=== PATIENT | female | born 1995 | race Caucasian/White ===

== ENCOUNTER 2022-12-23 13:22 | Emergency (ER) | payer OTHER, SELFPAY ==
[2022-12-23 13:50] VITALS: BP 172/104; PULSE 107; RESP 16; TEMP 37.1; O2SAT 99; BMI 53.5
--- NOTE | 2022-12-23 14:07 | DI.RAD.S_ITS ---
PROCEDURE: XR CHEST 2V INDICATIONS: chest and back pain TECHNIQUE: 2 views of the chest were acquired. COMPARISON: CR, XR CHEST 1VW, 06/15/2015, 16:39. FINDINGS: Surgical changes and devices: None. Lungs and pleura: Lungs are clear. No pleural effusions or pneumothorax. Mediastinum: Mediastinal contours are normal. Heart size is normal. Bones and chest wall: No suspicious bony abnormalities. Soft tissues appear unremarkable. IMPRESSION: Normal for age, source of current chest and back pain symptoms is not seen. Dictated by: Almas Washington M.D. on 12/23/2022 at 14:57 Approved by: Almas Washington M.D. on 12/23/2022 at 14:57
[2022-12-23 16:23] VITALS: BP 168/86; PULSE 74; RESP 17; O2SAT 100
--- NOTE | 2022-12-23 17:06 | ED_ITS ---
HPI - Back Pain/Injury <Oly Noe DO - Last Filed: 12/26/22 02:11> General Chief Complaint: Back Pain/Injury Stated Complaint: upper back pain/rib pain rt side Time Seen by Provider: 12/23/22 17:03 Source: patient History of Present Illness HPI Narrative: Patient is a healthy 27-year-old female morbidly obese presenting today with ready of symptoms. She reports back pain between her shoulder blades right shoulder pain abdominal pain little bit of nausea ongoing for the last 3 days. She reports it started were watching TV. Really reproducible with position he took Advil it did not seem help. She says it usually does. No fever. No shortness of breath. She denies taking any control and no recent travel. She reports that pain in her right upper quadrant sometimes radiates to her right shoulder. No other symptoms. Related Data Home Medications Medication Instructions Recorded Confirmed omeprazole 40 mg capsule,delayed 40 mg ##0 06/06/16 07/23/19 release lorazepam 0.5 mg tablet 0.5 mg PO Q4HP PRN ##0 09/12/16 levonorgestrel 21 mcg/24 hours (8 intrauterine 07/23/19 07/23/19 yrs) 52 mg intrauterine device (Mirena) Previous Rx's Medication Instructions Recorded hydrocodone 5 mg-acetaminophen 325 1 tab PO Q6H PRN pain #10 tabs 12/23/22 mg tablet ondansetron 8 mg disintegrating 8 mg PO Q8H #14 tabs 12/23/22 tablet Allergies Allergy/AdvReac Type Severity Reaction Status Date / Time adhesive tape [ADHESIVE TAPE] Allergy Unknown weeping Verified 12/23/22 13:50 rashes latex [LATEX] Allergy Unknown Verified 12/23/22 13:50 Review of Systems <Oly Noe DO - Last Filed: 12/26/22 02:11> Review of Systems ROS Unobtainable: All systems reviewed & are unremarkable except as noted in HPI and below Patient History <Oly Noe DO - Last Filed: 12/26/22 02:11> Medical History Abnormal Pap smear of anus (~2017) Anemia (~2014) Anxiety and depression (~2012) Frequent UTI GERD (gastroesophageal reflux disease) (~2015) Irritable bowel disease (~2015) PTSD (post-traumatic stress disorder) (~2019) Sleep apnea (~2019) Surgical History Anesthesia History of colposcopy (~2018) History of endoscopy History of gastrectomy (~2015) History of surgery Status post PICC central line placement Family History Grandfather Cancer Grandfather Diabetes mellitus Mental health problem Grandmother Diabetes mellitus Social History Smoking Status: Never smoker Smoking Status: Never smoker alcohol intake frequency: a few times a week Substance Use Type: does not use Exam <Oly Noe DO - Last Filed: 12/26/22 02:11> Initial Vital Signs Initial Vital Signs: Vital Signs Temperature 98.7 F 12/23/22 13:50 Pulse Rate 107 H 12/23/22 13:50 Respiratory Rate 16 12/23/22 13:50 Blood Pressure 172/104 H 12/23/22 13:50 Pulse Oximetry 99 12/23/22 13:50 Oxygen Delivery Method Room Air 12/23/22 13:50 GENERAL: Alert well-appearing 27-year-old female and in no acute distress. HEENT: Head atraumatic,EOMI, pupils reactive, face symmetric, moist mucous m embranes CARDIOVASCULAR: Regular rate and rhythm without murmurs, rubs or gallops. RESPIRATORY: Breath sounds equal bilaterally, no wheezes rales or rhonchi. ABDOMEN: Soft, mild right upper quadrant pain no guarding no rebound mild epigastric pain : No CVA tenderness EXTREMITIES: Normal range of motion, no clubbing or edema. Neurovascularly intact NEUROLOGICAL: Alert and oriented x4.Normal gait and speech. SKIN: Warm, dry, no laceration, no petechiae, no rashes or lesions. <Louis Vance DO - Last Filed: 12/24/22 00:50> Initial Vital Signs Initial Vital Signs: Vital Signs Temperature 98.7 F 12/23/22 13:50 Pulse Rate 107 H 12/23/22 13:50 Respiratory Rate 16 12/23/22 13:50 Blood Pressure 172/104 H 12/23/22 13:50 Pulse Oximetry 99 12/23/22 13:50 Oxygen Delivery Method Room Air 12/23/22 13:50 Course <Oly Noe DO - Last Filed: 12/26/22 02:11> Orders Ordered: Discontinued Medications Hydrocodone Bitart/Acetaminophen (Hydrocodone/Acet 5/325 Prepack) 1 bottle MISC SEEINSTR ONE Stop: 12/23/22 19:05 Last Admin: 12/23/22 20:17 Dose: 1 bottle Documented By: JEOVANNY Ketorolac Tromethamine (Ketorolac 30 Mg/Ml Vial) 15 mg IV NOW ONE Stop: 12/23/22 17:14 Last Admin: 12/23/22 17:57 Dose: 15 mg Documented By: JEOVANNY Ondansetron HCl (Ondansetron 4 Mg Odt Prepack) 1 bottle MISC SEEINSTR ONE Stop: 12/23/22 19:05 Last Admin: 12/23/22 20:17 Dose: 1 bottle Documented By: JEOVANNY Vital Signs Vital signs: Vital Signs - 8 hr 12/23/22 20:25 Pulse Rate 92 H Respiratory Rate 17 Blood Pressure 141/85 H Pulse Oximetry 99 Oxygen Delivery Method Room Air <Louis Vance DO - Last Filed: 12/24/22 00:50> Orders Ordered: Discontinued Medications Hydrocodone Bitart/Acetaminophen (Hydrocodone/Acet 5/325 Prepack) 1 bottle MISC SEEINSTR ONE Stop: 12/23/22 19:05 Last Admin: 12/23/22 20:17 Dose: 1 bottle Documented By: JEOVANNY Ketorolac Tromethamine (Ketorolac 30 Mg/Ml Vial) 15 mg IV NOW ONE Stop: 12/23/22 17:14 Last Admin: 12/23/22 17:57 Dose: 15 mg Documented By: JEOVANNY Ondansetron HCl (Ondansetron 4 Mg Odt Prepack) 1 bottle MISC SEEINSTR ONE Stop: 12/23/22 19:05 Last Admin: 12/23/22 20:17 Dose: 1 bottle Documented By: JEOVANNY Consultations Consultation #1: Discussed ultrasound findings with Dr. Monteiro. No indication for admission or surgical intervention at this time. Recommends pain control, low-fat diet and follow-up Vital Signs Vital signs: Vital Signs - 8 hr 12/23/22 20:25 Pulse Rate 92 H Respiratory Rate 17 Blood Pressure 141/85 H Pulse Oximetry 99 Oxygen Delivery Method Room Air MDM - Back Pain/Injury <Oly Kusum, DO - Last Filed: 12/26/22 02:11> Lab Data 12/23/22 17:20 12/23/22 17:20 Labs: Lab Results 12/23/22 12/23/22 Range/Units 17:20 17:20 WBC 9.6 (4.5-11.0) X10^3/uL RBC 3.99 L (4.0-5.2) X10^6/uL Hgb 11.0 L (12.0-16.0) g/dL Hct 33.6 L (36-46) % MCV 84.3 (80-100) fL MCH 27.7 (26-34) PG MCHC 32.8 (30-36) % RDW 15.9 H (11.6-14.8) % Plt Count 260 (150-400) X10^3/uL Neut % (Auto) 58.4 (50-75) % Lymph % (Auto) 35.4 (25-40) % [place] % (Auto) 5.0 (3-14) % Eos % (Auto) 0.6 L (2-4) % Baso % (Auto) 0.6 (0-2) % Neut # (Auto) 5600 (0190-0523) /uL Lymph # (Auto) 3400 (9328-7747) /uL [place] # (Auto) 500 (0-900) /uL Eos # (Auto) 100 (0-450) /uL Baso # (Auto) 100 (0-100) /uL Sodium 135 L (137-145) mmol/L Potassium 3.7 (3.4-5.1) mmol/L Chloride 101 (98-107) mmol/L Carbon Dioxide 28 (22-32) mmol/L BUN 6 L (7-17) mg/dL Creatinine 0.68 (0.52-1.04) mg/dL Estimated GFR > 60 (>60) mL/min BUN/Creatinine Ratio 8.8 (6-22) Glucose 103 H (70-100) mg/dL Calcium 8.8 (8.4-10.2) mg/dL Total Bilirubin 0.4 (0.2-1.3) mg/dL AST 26 (14-36) IU/L ALT 26 (<35) IU/L Alkaline Phosphatase 67 (38-126) U/L Total Protein 7.7 (6.3-8.2) g/dL Albumin 4.3 (3.5-5.0) g/dL Globulin 3.4 (1.7-4.1) g/dL Albumin/Globulin Ratio 1.3 (1.0-2.8) Lipase 62 (23-300) U/L Point of Care Testing Test Results Negative Urine Dip Bedside Urine Glucose Negative Bedside Urine Bilirubin - Negative Bedside Urine Ketone +++ 80 Urine Specific Vivian 1.015 Bedside Urine Occult Blood - Negative Bedside Urine pH 6.0 Bedside Urine Protein - Negative Bedside Urine Urobilinogen - Negative Bedside Urine Nitrite - Negative Imaging Data Chest x-ray: Radiologist's Impression: PROCEDURE:? XR CHEST 2V ? INDICATIONS:? chest and back pain ? TECHNIQUE:? 2 views of the chest were acquired.? ? COMPARISON:? CR, XR CHEST 1VW, 06/15/2015, 16:39. ? FINDINGS:? ? Surgical changes and devices:? None.? ? Lungs and pleura:? Lungs are clear.? No pleural effusions or pneumothorax.? ? Mediastinum:? Mediastinal contours are normal.? Heart size is normal.? ? Bones and chest wall:? No suspicious bony abnormalities.? Soft tissues appear unremarkable.? ? IMPRESSION:? Normal for age, source of current chest and back pain symptoms is not seen. ? ? Dictated by: Almas Washington M.D. on 12/23/2022 at 14:57? ECG Data Interpretation: Sinus rhythm rate 97 CT interval 146 a QRS [address] changes no T-wave inversions no ischemic changes MDM Narrative Medical decision making narrative: Patient 27-year-old female presenting today with chest pain shoulder pain abdominal pain. She is tender in her right upper quadrant concern for cholecystitis or cholelithiasis. Ultrasound does confirm multiple mobile stones without evidence of acute cholecystitis. She has no leukocytosis elevated bilirubin or liver enzymes. At this time no need for emergent surgery but will need an elective cholecystectomy. Pain is slightly improved after Toradol. Discussion with her about gallbladder diet and following up and when to return to ED. <Louis Vance DO - Last Filed: 12/24/22 00:50> Lab Data Labs: Lab Results 12/23/22 12/23/22 Range/Units 17:20 17:20 WBC 9.6 (4.5-11.0) X10^3/uL RBC 3.99 L (4.0-5.2) X10^6/uL Hgb 11.0 L (12.0-16.0) g/dL Hct 33.6 L (36-46) % MCV 84.3 (80-100) fL MCH 27.7 (26-34) PG MCHC 32.8 (30-36) % RDW 15.9 H (11.6-14.8) % Plt Count 260 (150-400) X10^3/uL Neut % (Auto) 58.4 (50-75) % Lymph % (Auto) 35.4 (25-40) % [place] % (Auto) 5.0 (3-14) % Eos % (Auto) 0.6 L (2-4) % Baso % (Auto) 0.6 (0-2) % Neut # (Auto) 5600 (3852-5241) /uL Lymph # (Auto) 3400 (6259-6698) /uL [place] # (Auto) 500 (0-900) /uL Eos # (Auto) 100 (0-450) /uL Baso # (Auto) 100 (0-100) /uL Sodium 135 L (137-145) mmol/L Potassium 3.7 (3.4-5.1) mmol/L Chloride 101 (98-107) mmol/L Carbon Dioxide 28 (22-32) mmol/L BUN 6 L (7-17) mg/dL Creatinine 0.68 (0.52-1.04) mg/dL Estimated GFR > 60 (>60) mL/min BUN/Creatinine Ratio 8.8 (6-22) Glucose 103 H (70-100) mg/dL Calcium 8.8 (8.4-10.2) mg/dL Total Bilirubin 0.4 (0.2-1.3) mg/dL AST 26 (14-36) IU/L ALT 26 (<35) IU/L Alkaline Phosphatase 67 (38-126) U/L Total Protein 7.7 (6.3-8.2) g/dL Albumin 4.3 (3.5-5.0) g/dL Globulin 3.4 (1.7-4.1) g/dL Albumin/Globulin Ratio 1.3 (1.0-2.8) Lipase 62 (23-300) U/L Point of Care Testing Test Results Negative Urine Dip Bedside Urine Glucose Negative Bedside Urine Bilirubin - Negative Bedside Urine Ketone +++ 80 Urine Specific Vivian 1.015 Bedside Urine Occult Blood - Negative Bedside Urine pH 6.0 Bedside Urine Protein - Negative Bedside Urine Urobilinogen - Negative Bedside Urine Nitrite - Negative Discharge Plan Departure Patient Disposition: Home Clinical Impression: Cholelithiasis Instructions: Gallstones, Cholecystectomy -- Laparoscopic Surgery Activity Restrictions/Additional Instructions: *You have been diagnosed with gallstones *What to do: At this time you have many gallstones. You will need to have surgery on her gallbladder however not emergent today. Please follow low-fat diet (Videofropper gallbladder diet) *Continue to take medications as directed--> [facility] [place] Ibuprofen 600 mg every 6 hours if needed for [id number] pain Zofran 4 mg every 8 hours if needed for nausea vomiting [place] 1 tablet every 6 hours if needed for severe pain *Follow up with your primary care provider in 2-3 days or call [phone] [facility] 1st thing Monday morning to schedule follow-up appointment *Return to ER if you should have increasing pain persistent vomiting fever or any new, worsening or concerning symptoms Prescriptions: New hydrocodone-acetaminophen 5-325 mg tablet 1 tab PO Q6H PRN (Reason: pain) Qty: 10 0RF ondansetron 8 mg tablet,disintegrating 8 mg PO Q8H Qty: 14 0RF No Action omeprazole 40 MG capsule,delayed release(DR/EC) 40 mg Qty: 0 lorazepam 0.5 MG tablet 0.5 mg PO Q4HP PRNQty: 0 Mirena 20 mcg/24 hours (5 yrs) 52 mg intrauterine device intrauterine Referrals: [facility] [Provider Group] Elizabeth Lobo ARNP [Primary Care Provider] - Stand Alone Forms: Patient Portal/API
--- NOTE | 2022-12-23 17:13 | DI.US.S_ITS ---
PROCEDURE: US ABDOMEN LIMITED INDICATIONS: RUQ TECHNIQUE: Real-time scanning was performed of the abdominal, with image documentation. COMPARISON: None. FINDINGS: Liver: Measures 17 cm in length. Increased in echogenicity. Limited views of the left lobe. Decreased sonographic penetration of the liver. Gallbladder: Nondilated. Multiple gallstones. A larger gallstone measuring 2.6 cm. Sludge is present. Gallbladder wall is thickened measuring 5 mm. No pericholecystic fluid. Negative sonographic Pierre's sign. Biliary ducts: Intrahepatic bile ducts are non-dilated. CBD is not well seen estimated at 7 mm and at the upper limits of normal. Pancreas: Not well seen. Spleen: Spleen is normal in size and homogeneous in echotexture. IMPRESSION: Exam is technically difficult due to acoustic windows and bowel gas. 1. Multiple gallstones. Gallbladder wall thickening. These findings raise the possibility of cholecystitis. However, no pericholecystic fluid or sonographic Pierre's sign. HIDA scan could be considered for further evaluation. 2. Increased hepatic echogenicity most consistent with hepatic steatosis. Other forms of hepatocellular disease could have similar appearance. Dictated by: Clyde Cullen M.D. on 12/23/2022 at 19:29 Approved by: Clyde Cullen M.D. on 12/23/2022 at 19:32
[2022-12-23 17:32] LABS: Add Manual Diff / Slide Review NO; Basophils Absolute Auto 100 /uL (0-100); Basophils Percent Auto 0.6 % (0-2); Eosinophils Absolute Auto 100 /uL (0-450); Eosinophils Percent Auto 0.6 % (2-4); Hematocrit 33.6 % (36-46); Lymphocytes Absolute Auto 3400 /uL (1100-4500); Lymphocytes Percent Auto 35.4 % (25-40); Mean Corpuscular HGB Conc 32.8 % (30-36); Mean Corpuscular Hemoglobin 27.7 PG (26-34); Mean Corpuscular Volume 84.3 fL (80-100); Monocytes Absolute Auto 500 /uL (0-900); Neutrophils Absolute Auto 5600 /uL (1500-7000); Neutrophils Percent Auto 58.4 % (50-75); Platelet Count 260 X10^3/uL (150-400); Red Blood Cell Count 3.99 X10^6/uL (4.0-5.2); Red Cell Distribution Width 15.9 % (11.6-14.8); White Blood Cell Count 9.6 X10^3/uL (4.5-11.0)
[2022-12-23 17:41] LABS: Alanine Aminotransferase 26 IU/L (<35); Albumin 4.3 g/dL (3.5-5.0); Albumin Globulin Ratio 1.3 (1.0-2.8); Alkaline Phosphatase 67 U/L (38-126); Aspartate Aminotransferase 26 IU/L (14-36); BUN Creatinine Ratio 8.8 (6-22); Bilirubin Total 0.4 mg/dL (0.2-1.3); Blood Urea Nitrogen 6 mg/dL (7-17); Calcium 8.8 mg/dL (8.4-10.2); Carbon Dioxide 28 mmol/L (22-32); Chloride 101 mmol/L (98-107); Estimated Glomerular Filt Rate > 60 mL/min (>60); Globulin 3.4 g/dL (1.7-4.1); Glucose 103 mg/dL (70-100); HEMOLYSIS 23 (0-50); Lipase 62 U/L (23-300); Potassium 3.7 mmol/L (3.4-5.1); Sodium 135 mmol/L (137-145); Total Protein 7.7 g/dL (6.3-8.2)
[2022-12-23] MEDS: KETOROLAC 30 MG/ML VIAL 15 MG IV (17:57)
[2022-12-23] MEDS: HYDROCODONE/ACET 5/325 PREPACK 1 BOTTLE MISC (20:17)
[2022-12-23] MEDS: ONDANSETRON 4 MG ODT PREPACK 1 BOTTLE MISC (20:17)
[2022-12-23 20:25] VITALS: BP 141/85; PULSE 92; RESP 17; O2SAT 99
== END 2022-12-23 20:46 | disposition home or self-care (01) ==
PROVIDERS: Emergency Provider Emergency Medicine; PCP Nurse Practitioner Family
DX: K80.20 Calculus of gallbladder without cholecystitis without obstruction (principal); R07.9 Chest pain, unspecified
CPT/HCPCS: 36415; 71046; 76705; 80053; 81003; 81025; 83690; 85025; 93005; 93010; 96374; 99284; J1885

== ENCOUNTER 2023-01-18 06:50 | Day surgery (SDC) | payer OTHER, SELFPAY ==
[2023-01-17 09:18] VITALS: BMI 51.6
[2023-01-18] VITALS (8 sets, daily range): BP systolic 142–177; BP diastolic 90–113; PULSE 83–100; RESP 11–19; TEMP 36.2–36.5; O2SAT 96–100; BMI 51.6
--- NOTE | 2023-01-18 07:36 | PM.PREOP ---
Pre-operative Note Interval Note History & Physical reviewed/Exam performed by Physician: Yes Changes to H&P: No
[2023-01-18] MEDS: SCOPOLAMINE 1 PATCH TOP (07:41)
[2023-01-18] MEDS: LACTATED RINGERS 1,000 ML 100 ML IV (07:41)
[2023-01-18] MEDS: ACETAMINOPHEN IV 1,000 MG/100 ML VIAL 400 MG IV (07:41)
--- NOTE | 2023-01-18 07:51 | PM.PREOP ---
Pre-operative Note Interval Note History & Physical reviewed/Exam performed by Physician: Yes Changes to H&P: No
[2023-01-18] MEDS: CEFAZOLIN VIAL 3 GM in SODIUM CHLORIDE 0.9% 100 ML IV (08:02)
--- NOTE | 2023-01-18 08:33 | SUR.OPER ---
Supine on padded OR bed, head on pillow, safety belt at thigh, left arm padded and tucked at side. Left arm resting on bed extension, Right arm secured on padded arm board <90 degrees abduction, folded blanket and gel pad under right arm. Padded wedge under patient torso Legs uncrossed. Padded footboard in place. Tape over blanket to secure lower legs. gel pad under bilateral heels.
[2023-01-18] MEDS: BUPIVACAINE 0.25% (PF) VIAL 30 ML INJ (08:52)
--- NOTE | 2023-01-18 09:08 | P.OP_ITS ---
Operative Date/Time/Diagnoses Date of procedure: 01/18/23 Time of procedure: 09:08 Pre-op diagnosis: Biliary colic Post-op diagnosis: other (Biliary colic, morbid obesity) Procedure & Clinicians Procedure: Diagnostic laparoscopy, percutaneous aspiration of gallbladder Same procedure as scheduled: Yes Indications: 27-year-old woman with morbid obesity who had a prior gastric sleeve complicated by esophageal perforation. She has a 3 cm stone stuck in the neck of her gallbladder and has biliary colic. Surgeon: Javier Monteiro Marketing Communications Leader: Justyn Young Operative Notes Findings: Unable to identify the critical structures. The infundibulum of the gallbladder could be exposed but the cystic duct and artery were obscured by her morbid obesity and scarring from prior gastric sleeve Specimen(s): none sent Estimated Blood Loss (mL): 10 Procedure in detail: Patient was brought to the operating room placed supine on the table. Bilateral lower extremity compression devices were applied. She received 3 g of Ancef prior to skin incision. She was prepped and draped sterile fashion following induction of anesthesia and intubation with an endotracheal tube. Time-out was performed. A infraumbilical incision was made the subcutaneous tissue was divided exposing the fascia. Fascia was incised and the abdomen was entered atraumatically. A balloon trocar was then placed and pneumoperitoneum was established. A general inspection of the abdomen was made. There was no evidence of injury upon entry. The gallbladder was tense and distended. Additional 5 mm working ports were placed in the right upper quadrant and a 11 mm port high in the epigastric region. The gallbladder could not be manipulated as it was tense and distended and so it was percutaneously drained to facilitate its manipulation. Additional 5 mm working ports were placed but we were only able to expose a portion of the the infundibulum the gallbladder. The critical structures remained obscured as a result of her super morbid obesity and scarring from her prior complicated gastric sleeve. We considered our options including a top-down approach, conversion open and bail out. My concern was that as a result of her obesity and adhesions from prior complicated gastric sleeve I did not think that these would be improved with either top-down or open approach. At this point we decided it was in her best interest to abort the procedure. The ports removed under direct visualization. The umbilicus was closed with 0 Vicryl suture in [id number] fashion. The skin incisions were closed with Monocryl followed by Dermabond. She emerged from anesthesia was extubated and transferred to recovery in stable condition. Discussed with her Desmond Jeffry miranda and my recommendation is that she have referral to a tertiary care center with bariatric expertise. Complications: none Post-operative Condition: stable Disposition: same day surgery
[2023-01-18] MEDS: KETOROLAC 30 MG/ML VIAL IV (09:23)
[2023-01-18] MEDS: hydrOXYzine pamoate 25 MG CAPSULE PO (09:32)
[2023-01-18] MEDS: OXYCODONE IR 5 MG TABLET PO (09:32)
== END 2023-01-18 10:40 | disposition home or self-care (01) ==
PROVIDERS: PCP Nurse Practitioner Family; Referring Provider Surgery; Visit Provider Surgery
PROC: 0FT44ZZ Resection of Gallbladder, Percutaneous Endoscopic Approach (ICD-10-PCS; CPT 47562; principal; 2023-01-18 07:45)
DX: K80.20 Calculus of gallbladder without cholecystitis without obstruction (principal); E66.01 Morbid (severe) obesity due to excess calories; Z68.43 Body mass index [BMI] 50.0-59.9, adult; Z98.84 Bariatric surgery status; G47.33 Obstructive sleep apnea (adult) (pediatric); K21.9 Gastro-esophageal reflux disease without esophagitis
CPT/HCPCS: 47999; 81025; 82962; J0131; J0690; J1100; J1885; J2250; J2405; J2704; J3010; J3490

== ENCOUNTER 2023-05-26 22:33 | Emergency (ER) | payer OTHER, SELFPAY ==
[2023-05-26 22:43] VITALS: BP 165/85; PULSE 118; RESP 18; TEMP 36.7; O2SAT 97; BMI 52.3
--- NOTE | 2023-05-26 22:48 | DI.RAD.S_ITS ---
PROCEDURE: XR ABDOMEN MIN 2V INDICATIONS: constipation TECHNIQUE: 4 views of the abdomen were acquired. COMPARISON: None. FINDINGS: Surgical changes and devices: None. Bowel: No pneumoperitoneum. Fecal residue in the right colon. Soft tissues: No masses; visualized solid organ contours appear normal in size. No suspicious abdominal calcifications. Bones: No suspicious bony abnormalities. IMPRESSION: Fecal residue in the right colon seen. Dictated by: Clyde Cullen M.D. on 05/26/2023 at 23:15 Approved by: Clyde Cullen M.D. on 05/26/2023 at 23:16
--- NOTE | 2023-05-27 00:06 | ED_ITS ---
HPI - Abdominal Pain General Chief Complaint: Abdominal Pain Stated Complaint: constipated t-3 Time Seen by Provider: 05/26/23 22:48 Source: patient Mode of arrival: Ambulatory Limitations: no limitations History of Present Illness HPI narrative: 27-year-old female with complaint of constipation for the past 3 days, rectal pain with sensation that there is a large stool right at the rectal opening but been unable to pass. Patient states she has had mild issues in the past but not to this level. She is quite uncomfortable. Sitting is very uncomfortable. She states a small pebble of stool came out earlier. She tried an enema at home but states she could not get it in because the ball of stool was protruding outwards. Patient states she is felt warm today. She is rectal pain no other abdominal pain no back or flank pain. No vomiting but felt nauseated. She states she was stooling regularly until about 3 days ago. She did try some magnesium citrate yesterday. Patient states no other stool softeners. She does note they have been eating out a lot lately because there stove and oven have not been available. She is not taking any new medications that she would expect to cause constipation. She states no daily medications. She had a cholecystectomy in the summer. No tobacco, occasional alcohol, no recreational drugs. Related Data Home Medications Medication Instructions Recorded Confirmed omeprazole 40 mg capsule,delayed 40 mg PO DAILY ##0 06/06/16 01/24/23 release Previous Rx's Medication Instructions Recorded acetaminophen 325 mg capsule 650 mg (2 x 325 mg) PO QID PRN 01/18/23 (Tylenol) pain #60 caps ibuprofen 200 mg tablet 400 mg (2 x 200 mg) PO Q6H #60 tabs 01/18/23 nystatin 100,000 unit/gram topical 1 applic topical BID #15 grams 01/22/23 powder oxycodone 5 mg tablet 5 mg PO Q6H PRN pain #20 tabs 01/24/23 prednisone 5 mg tablet 5 mg PO DIRECTED #10 tabs 01/24/23 sulfamethoxazole 800 1 tab PO Q12H #10 tabs 01/24/23 mg-trimethoprim 160 mg tablet (Bactrim DS) lidocaine HCl 2 % mucosal jelly in 1 applic topical TID PRN pain #25 05/27/23 applicator mL meloxicam 7.5 mg tablet 7.5 mg PO BID PRN pain #10 tabs 05/27/23 Allergies Allergy/AdvReac Type Severity Reaction Status Date / Time adhesive tape [ADHESIVE TAPE] Allergy Unknown weeping Verified 05/26/23 22:43 rashes latex [LATEX] Allergy Unknown Verified 05/26/23 22:43 ChloraPrep Allergy Intermediate Rash Uncoded 05/26/23 22:43 Review of Systems Review of Systems ROS Unobtainable: All systems reviewed & are unremarkable except as noted in HPI and below Patient History Medical History Sleep apnea (~2018) PTSD (post-traumatic stress disorder) (~2018) Anemia (~2014) Frequent UTI GERD (gastroesophageal reflux disease) (~2014) Anxiety and depression (~2012) Irritable bowel disease (~2014) Abnormal Pap smear of anus (~2017) Surgical History Anesthesia History of surgery Status post PICC central line placement History of colposcopy (~2017) History of endoscopy History of gastrectomy (~2014) Family History Grandfather Cancer Grandfather Diabetes mellitus Mental health problem Grandmother Diabetes mellitus Mother Gallstones Social History marital status: household members: spouse lives independently: Yes occupational status: employed Smoking Status: Never smoker alcohol intake: current substance use type: does not use Smoking Status: Never smoker alcohol intake frequency: a few times a week Substance Use Type: does not use Exam Narrative Exam Narrative: GENERAL: Alert and oriented x three, female with BMI of 52 in mild distress. HEENT: Head normocephalic, atraumatic, EOMI, pupils reactive, face symmetric, moist mucous membranes NECK: Supple, full range of motion CARDIOVASCULAR: Regular rate and rhythm without murmurs, rubs or gallops. RESPIRATORY: Breath sounds equal bilaterally, no wheezes rales or rhonchi. ABDOMEN: Soft, nontender. Normoactive bowel sounds all 4 quadrants. No guarding or rebound, rigidity, no mass, on digital rectal exam, no palpable stool but patient is quite uncomfortable palpation of the rectum no hernia is palpated, no prolapse of the rectum. Was difficult to visualize the region but suspect possible fissure as patient is quite uncomfortable with RIKI. No blood present. : No CVA tenderness EXTREMITIES: Normal range of motion, no clubbing or edema. Neurovascularly intact NEUROLOGICAL: Cranial nerves II through XII grossly intact. Moving all extremities SKIN: Warm, dry, no petechiae, no rashes or lesions. Initial Vital Signs Initial Vital Signs: Vital Signs Temperature 98.1 F 05/26/23 22:43 Pulse Rate 118 H 05/26/23 22:43 Respiratory Rate 18 05/26/23 22:43 Blood Pressure 165/85 H 05/26/23 22:43 Pulse Oximetry 97 05/26/23 22:43 Oxygen Delivery Method Room Air 05/26/23 22:43 Course Orders Ordered: ED Orders 05/26/23 22:48 XR abdomen min 2V Stat Discontinued Medications Ketorolac Tromethamine (Ketorolac 30 Mg/Ml Vial) 30 mg IM NOW ONE Stop: 05/27/23 00:17 Last Admin: 05/27/23 00:20 Dose: 30 mg Documented By: DELVIS Lidocaine HCl (Lidocaine 2% (Glydo) 6 Ml Gel) 6 ml TOP NOW ONE Stop: 05/27/23 00:17 Last Admin: 05/27/23 00:35 Dose: 6 ml Documented By: DELVIS Mineral Oil (Mineral Oil 1 Each Enema) 1 each NV NOW ONE Stop: 05/27/23 00:17 Last Admin: 05/27/23 00:35 Dose: 1 each Documented By: DELVIS Vital Signs Vital signs: Vital Signs - 8 hr 05/26/23 22:43 05/27/23 01:35 Temperature 98.1 F Pulse Rate 118 H 77 Respiratory Rate 18 16 Blood Pressure 165/85 H 129/58 L Pulse Oximetry 97 96 Oxygen Delivery Method Room Air Room Air MDM - Abdominal Pain Imaging Data Abdominal x-ray: Radiologist's Impression: [address] [address] XRay Report Signed Patient: Keily Arnold MR#: [id number] : 1995 Acct:[id number] Age/Sex: 27 / F Date of Service: 05/26/23 Loc: ED Accession Number: [id number] Procedure: XR abdomen min 2V Ordering Provider: Danae Reid D.O. PROCEDURE: XR ABDOMEN MIN 2V INDICATIONS: constipation TECHNIQUE: 4 views of the abdomen were acquired. COMPARISON: None. FINDINGS: Surgical changes and devices: None. Bowel: No pneumoperitoneum. Fecal residue in the right colon. Soft tissues: No masses; visualized solid organ contours appear normal in size. No suspicious abdominal calcifications. Bones: No suspicious bony abnormalities. IMPRESSION: Fecal residue in the right colon seen. Dictated by: Clyde Cullen M.D. on 05/26/2023 at 23:15 Approved by: Clyde Cullen M.D. on 05/26/2023 at 23:16 MDM Narrative Medical decision making narrative: 27-year-old female with report of constipation she is had quite a bit of rectal pain she states that there was a large ball of stool most protruding from the rectum she states it sort of gone back up but she is still quite painful. She has had mild issues in the past but not to this level. Her diet recently changed but no other clear inciting factors. On rectal exam no palpable stool that is easily reached x-ray shows some colonic residual stool on the right. No signs of perforation. Patient does not have any palpable hemorrhoid and no prolapse of the rectum but she is quite uncomfortable on RIKI and suspect she may have a fissure. Discussed with patient will give a dose of Toradol for pain management, glido rectally an enema. Patient is agreeable to this. Patient had some very small amounts of stool. She is feeling more comfortable at this time and is comfortable with discharge home. Discussed if this is unsuccessful to use glycerin suppositories stool softeners and can take Tylenol/NSAIDs for pain management to avoid constipating properties of narcotics. Discharge Plan Departure Patient Disposition: Home Clinical Impression: Constipation, Anal or rectal pain Instructions: DI for Anal Fissure Activity Restrictions/Additional Instructions: I suspect you do have an anal fissure or a small tear at the anal opening cont ributing to your pain. For long-term treatment stool softeners and having soft regular stools we will help this to heal. I would recommend Colace 1 tablet every 12 hours until stooling regularly. Sitz baths or warm baths can be helpful for discomfort. Drink 1/2 bottle of magnesium citrate, weight 4-6 hours if no change you may drink the 2nd half. You can take Tylenol up to a 1000 mg every 6 hours and/or meloxicam 1 tablet every 12 hours as needed for pain. Small amount of lidocaine is included you can put this at the rectal opening prior to bowel movements. You may use 3 times daily. Prescription sent to [facility] in [place]. Please return for rapidly worsening symptoms, fevers, nausea vomiting, new or worsening abdominal pain, black or bloody stools, if you are not having bowel movements or passing gas or flatus for 24 hours or other new or concerning changes. Prescriptions: New meloxicam 7.5 mg tablet 7.5 mg PO BID PRN (Reason: pain) Qty: 10 0RF lidocaine HCl 2 % jelly in applicator 1 applic topical TID PRN (Reason: pain) Qty: 25 0RF No Action omeprazole 40 MG capsule,delayed release(DR/EC) 40 mg PO DAILY Qty: 0 nystatin 100,000 unit/gram powder 1 applic topical BID Qty: 15 2RF oxycodone 5 mg tablet 5 mg PO Q6H PRN (Reason: pain) Qty: 20 0RF prednisone 5 mg tablet 5 mg PO DIRECTED Qty: 10 0RF Rx Instructions: Day 1-4 tabs Day 2 -4 tabs Day 3-2 tabs sulfamethoxazole-trimethoprim [Bactrim DS] 800-160 mg tablet 1 tab PO Q12H Qty: 10 0RF ibuprofen 200 mg tablet 400 mg PO Q6H Qty: 60 0RF acetaminophen [Tylenol] 325 mg capsule 650 mg PO QID PRN (Reason: pain) Qty: 60 0RF Referrals: Elizabeth Lobo ARNP [Primary Care Provider] - Stand Alone Forms: Patient Portal/API
[2023-05-27] MEDS: KETOROLAC 30 MG/ML VIAL IM (00:20)
[2023-05-27] MEDS: LIDOCAINE 2% (GLYDO) 6 ML GEL TOP (00:35)
[2023-05-27] MEDS: MINERAL OIL 1 EACH ENEMA PR (00:35)
[2023-05-27 01:35] VITALS: BP 129/58; PULSE 77; RESP 16; O2SAT 96
== END 2023-05-27 01:37 | disposition home or self-care (01) ==
PROVIDERS: Emergency Provider Emergency Medicine; PCP Nurse Practitioner Family
DX: K59.00 Constipation, unspecified (principal); K62.89 Other specified diseases of anus and rectum
CPT/HCPCS: 74019; 96372; 99283; 99284; J1885